=== PATIENT | male | born 2000 | race Caucasian/White ===

== ENCOUNTER 2021-04-19 13:15 | Outpatient (REF) | payer MEDICAID, SELFPAY ==
[2021-04-19 21:52] LABS: ALT 26 U/L (16-63); AST 18 U/L (15-37); Albumin 4.7 g/dL (3.4-5.0); Alkaline Phosphatase 77 U/L (46-116); Anion Gap 8.1 mmol/L (3-11); BUN 10 mg/dL (7-18); Bilirubin, Total 0.3 mg/dL (0.2-1.0); CO2 28.9 mmol/L (21.0-32.0); CREATININE 0.9 mg/dL (0.70-1.30); Calcium 9.4 mg/dL (8.5-10.1); Calculated LDL 87 mg/dL (<100); Chloride 102 mmol/L (98-107); Cholesterol 169 mg/dL (<200); Glucose 76 mg/dL (74-106); HDL Cholesterol 74 mg/dL (40-60); Potassium 4.4 mmol/L (3.5-5.1); Sodium 139 mmol/L (136-145); Total Protein 8.1 g/dL (6.4-8.2); Triglyceride 41 mg/dL (<150)
[2021-04-24 12:22] LABS: Testosterone, Total 358 ng/dL (240-950)
== END 2021-04-19 13:16 | disposition home or self-care (01) ==
LOC: NCHCN 13:15
PROVIDERS: PCP Family Medicine; Referring Provider Family Medicine; Visit Provider Family Medicine
DX: F64.1 Dual role transvestism (principal); Z00.00 Encounter for general adult medical examination without abnormal findings; Z13.220 Encounter for screening for lipoid disorders
CPT/HCPCS: 80053; 80061; 84403

== ENCOUNTER 2021-10-01 13:35 | Outpatient (REF) | payer MEDICAID, SELFPAY ==
[2021-10-01 16:31] LABS: Anion Gap 8.1 mmol/L (3-11); BUN 13 mg/dL (7-18); CO2 26.9 mmol/L (21.0-32.0); CREATININE 0.7 mg/dL (0.70-1.30); Chloride 106 mmol/L (98-107); Glucose 77 mg/dL (74-106); Potassium 4.3 mmol/L (3.5-5.1); Sodium 141 mmol/L (136-145)
[2021-10-01 22:28] LABS: Estradiol 134 pg/mL (<40)
[2021-10-07 01:46] LABS: Testosterone, Total 328 ng/dL (240-950)
== END 2021-10-01 13:36 | disposition home or self-care (01) ==
LOC: LBN 13:35
PROVIDERS: PCP Family Medicine; Visit Provider Family Medicine
DX: F64.8 Other gender identity disorders (principal)
CPT/HCPCS: 80048; 84403; 82670

== ENCOUNTER 2021-11-12 10:35 | Outpatient (REF) | payer MEDICAID, SELFPAY ==
[2021-11-12 15:41] LABS: Anion Gap 7.8 mmol/L (3-11); BUN 13 mg/dL (7-18); CO2 29.2 mmol/L (21.0-32.0); CREATININE 0.7 mg/dL (0.70-1.30); Calcium 8.7 mg/dL (8.5-10.1); Chloride 104 mmol/L (98-107); Glucose 93 mg/dL (74-106); Potassium 4.6 mmol/L (3.5-5.1); Sodium 141 mmol/L (136-145)
== END 2021-11-12 10:36 | disposition home or self-care (01) ==
LOC: LBN 10:35
PROVIDERS: PCP Family Medicine; Visit Provider Family Medicine
DX: Z51.81 Encounter for therapeutic drug level monitoring (principal); F64.8 Other gender identity disorders
CPT/HCPCS: 80048

== ENCOUNTER 2021-12-04 12:17 | Outpatient (REF) | payer MEDICAID, SELFPAY ==
[2021-12-04 15:25] LABS: Anion Gap 5.7 mmol/L (3-11); BUN 14 mg/dL (7-18); CO2 28.3 mmol/L (21.0-32.0); CREATININE 0.8 mg/dL (0.70-1.30); Calcium 8.6 mg/dL (8.5-10.1); Chloride 104 mmol/L (98-107); Glucose 89 mg/dL (74-106); Potassium 4.4 mmol/L (3.5-5.1); Sodium 138 mmol/L (136-145)
[2021-12-04 23:04] LABS: Estradiol 48 pg/mL (<40)
[2021-12-07 14:57] LABS: Testosterone, Total 357 ng/dL (240-950)
== END 2021-12-04 12:18 | disposition home or self-care (01) ==
LOC: LBN 12:17
PROVIDERS: PCP Family Medicine; Visit Provider Family Medicine
DX: F64.9 Gender identity disorder, unspecified (principal); Z51.81 Encounter for therapeutic drug level monitoring
CPT/HCPCS: 80048; 84403; 82670

== ENCOUNTER 2022-01-08 19:00 | Outpatient (REF) | payer MEDICAID, SELFPAY ==
[2022-01-08 16:57] LABS: Anion Gap 6.4 mmol/L (3-11); BUN 22 mg/dL (7-18); CO2 27.6 mmol/L (21.0-32.0); CREATININE 0.8 mg/dL (0.70-1.30); Calcium 8.6 mg/dL (8.5-10.1); Chloride 105 mmol/L (98-107); Glucose 77 mg/dL (74-106); Potassium 4.5 mmol/L (3.5-5.1); Sodium 139 mmol/L (136-145)
[2022-01-09 18:14] LABS: Estradiol 781 pg/mL (<40)
[2022-01-12 19:04] LABS: Testosterone, Total 20 ng/dL (240-950)
== END 2022-01-08 19:01 | disposition home or self-care (01) ==
LOC: LBN 19:00
PROVIDERS: Visit Provider Family Medicine
DX: F64.9 Gender identity disorder, unspecified (principal); Z51.81 Encounter for therapeutic drug level monitoring
CPT/HCPCS: 80048; 84403; 82670

== ENCOUNTER 2024-10-31 15:32 | Outpatient (REF) | payer SELFPAY ==
[2024-10-31 22:29] LABS: Anion Gap 7.1 mmol/L (3-11); BUN 11 mg/dL (7-18); CO2 28.9 mmol/L (21.0-32.0); CREATININE 0.7 mg/dL (0.70-1.30); Calcium 9.4 mg/dL (8.5-10.1); Chloride 104 mmol/L (98-107); Estimated GFR 130.32 (mL/min/1.73m2); Glucose 93 mg/dL (74-106); Potassium 4.2 mmol/L (3.5-5.1); Sodium 140 mmol/L (136-145)
[2024-11-01 18:28] LABS: Estradiol 75 pg/mL (<40)
[2024-11-04 11:39] LABS: Testosterone, Total <7.0 ng/dL (240-950)
== END 2024-10-31 15:33 | disposition home or self-care (01) ==
LOC: NCHCN 15:32
PROVIDERS: Visit Provider Family Medicine
DX: Z51.81 Encounter for therapeutic drug level monitoring (principal)
CPT/HCPCS: 80048; 84403; 82670